=== PATIENT | female | born 1935 | race Caucasian/White ===

== ENCOUNTER 2017-06-10 00:51 | Day surgery (SDC) | payer MEDICARE, OTHER ==
[~2017-06-10 00:51] MED LIST: ALBU90OI INH; ATOR10 PO; Adult Low Dose81 MG PO; CITA20 PO; Calcium + Vita1 EACH PO; Celebrex200 MG PO; ENOX40I SC; Estradiol0.5 MG PO; FLONASE ALLERG9.9 ML NS; FLUSAL2505 INH; FOLI1 PO; GABA300 PO; GABA600 PO; HYDR-86 PO; HYDRO EYE PO; Hair, Skin & N1 EACH PO; Hydrocodone-Ap1 EA26 PO; INFLECTRA100 MG IV; JOINT HEALTH T1 EACH PO; METO100ER PO; METTREX2.5 PO; NITR.4SL SL; NYSTRITC TOP; OLME20-12. PO; OLME5TAB; Omeprazole20 M1; Omeprazole20 M1 PO; PREG150 PO; PROM25 PO; RANI150 PO; Remicade100 MG IV; Stool Softener100 MG PO; XARELTO20 MG PO; Zofran Odt4 MG SL
[2017-06-10 15:52] LABS: BASOPHILS ABSOLUTE AUTO 0.01 K/mm3 (0.00-0.23); BASOPHILS PERCENT AUTO 0 % (0-2); EOSINOPHILS ABSOLUTE AUTO 0.24 K/mm3 (0.00-0.68); EOSINOPHILS PERCENT AUTO 4 % (0-6); Hematocrit 41.5 % (33.0-51.0); Hemoglobin 13.3 g/dL (11.5-16.0); IMMATURE GRAN ABSOLUTE AUTO 0.01 K/mm3 (0.00-0.10); IMMATURE GRAN PERCENT AUTO 0 % (0-1); LYMPHOCYTES ABSOLUTE AUTO 2.19 K/mm3 (0.84-5.20); LYMPHOCYTES PERCENT AUTO 37 % (21-46); MONOCYTES ABSOLUTE AUTO 0.55 K/mm3 (0.16-1.47); MONOCYTES PERCENT AUTO 9 % (4-13); Mean Corpuscular HGB 31.3 pg (26.0-34.0); Mean Corpuscular Volume 98 fL (80-100); Mean Platelet Volume 10.1 fL (9.1-12.4); NEUTROPHILS ABSOLUTE AUTO 2.89 K/mm3 (1.96-9.15); NEUTROPHILS PERCENT AUTO 49 % (41-73); Platelet Count 383 K/mm3 (150-400); RDW Coefficient Variation 16.5 % (11.7-14.2); Red Blood Cell Count 4.25 M/mm3 (3.80-5.20); White Blood Cell Count 5.89 K/mm3 (4.00-11.30)
[2017-06-10 17:01] LABS: BASOPHILS ABSOLUTE AUTO 0.01 K/mm3 (0.00-0.23); BASOPHILS PERCENT AUTO 0 % (0-2); EOSINOPHILS ABSOLUTE AUTO 0.25 K/mm3 (0.00-0.68); EOSINOPHILS PERCENT AUTO 3 % (0-6); Hematocrit 38.3 % (33.0-51.0); Hemoglobin 12.5 g/dL (11.5-16.0); IMMATURE GRAN ABSOLUTE AUTO 0.01 K/mm3 (0.00-0.10); IMMATURE GRAN PERCENT AUTO 0 % (0-1); LYMPHOCYTES ABSOLUTE AUTO 3.06 K/mm3 (0.84-5.20); LYMPHOCYTES PERCENT AUTO 42 % (21-46); MONOCYTES ABSOLUTE AUTO 0.79 K/mm3 (0.16-1.47); MONOCYTES PERCENT AUTO 11 % (4-13); Mean Corpuscular HGB 31.5 pg (26.0-34.0); Mean Corpuscular HGB Conc 32.6 g/dL (31.5-36.5); Mean Corpuscular Volume 97 fL (80-100); Mean Platelet Volume 9.4 fL (9.1-12.4); NEUTROPHILS ABSOLUTE AUTO 3.26 K/mm3 (1.96-9.15); NEUTROPHILS PERCENT AUTO 44 % (41-73); Platelet Count 334 K/mm3 (150-400); RDW Standard Deviation 56.4 fL (35.1-46.3); Red Blood Cell Count 3.97 M/mm3 (3.80-5.20); White Blood Cell Count 7.38 K/mm3 (4.00-11.30)
== END 2017-06-10 16:45 | disposition home or self-care (01) ==
LOC: ATC 00:51
PROVIDERS: Internal Medicine Rheumatology
DX: M06.00 Rheumatoid arthritis without rheumatoid factor, unspecified site (principal); M45.9 Ankylosing spondylitis of unspecified sites in spine; M17.9 Osteoarthritis of knee, unspecified; E78.5 Hyperlipidemia, unspecified; Z79.899 Other long term (current) drug therapy; Z79.01 Long term (current) use of anticoagulants; Z86.73 Personal history of transient ischemic attack (TIA), and cerebral infarction without residual deficits; Z87.891 Personal history of nicotine dependence
CPT/HCPCS: 84450; 85025; 85651; 96413; 96415; J7050; Q5102-ZB

== ENCOUNTER 2017-07-26 12:03 | Day surgery (SDC) | payer MEDICARE, OTHER ==
[~2017-07-26] VITALS: Ht 157.5 cm; Wt 81.0 kg
== END 2017-07-26 22:44 | disposition home or self-care (01) ==
LOC: MHTC 12:03
PROC: 0JH632Z Insertion of Monitoring Device into Chest Subcutaneous Tissue and Fascia, Percutaneous Approach (ICD-10-PCS; principal; 2017-07-26)
DX: I48.91 Unspecified atrial fibrillation (principal); J45.909 Unspecified asthma, uncomplicated; M45.9 Ankylosing spondylitis of unspecified sites in spine; M19.90 Unspecified osteoarthritis, unspecified site; M06.9 Rheumatoid arthritis, unspecified; K21.9 Gastro-esophageal reflux disease without esophagitis; Z86.73 Personal history of transient ischemic attack (TIA), and cerebral infarction without residual deficits; Z79.899 Other long term (current) drug therapy; Z79.01 Long term (current) use of anticoagulants; Z87.891 Personal history of nicotine dependence
CPT/HCPCS: 33282; C1764

== ENCOUNTER 2017-07-29 01:05 | Day surgery (SDC) | payer MEDICARE, OTHER ==
[2017-07-29] MEDS ORDERED: DULO30 (13:51)
[2017-07-29] MEDS ORDERED: Slow Release I160 MG PO (13:52)
== END 2017-07-29 16:35 | disposition home or self-care (01) ==
LOC: ATC 01:05
DX: M06.00 Rheumatoid arthritis without rheumatoid factor, unspecified site (principal); M45.9 Ankylosing spondylitis of unspecified sites in spine; M17.9 Osteoarthritis of knee, unspecified
CPT/HCPCS: 96413; 96415; J7050; Q5102-ZB

== ENCOUNTER 2017-08-10 17:36 | Emergency (ER) | payer MEDICARE, OTHER ==
[~2017-08-10] VITALS: Ht 157.5 cm; Wt 81.7 kg
[~2017-08-10 17:36] MED LIST changes: +DULO30; +Slow Release I160 MG PO
[2017-08-10 19:57] LABS: Source, Urine Clean Catch
[2017-08-10 19:58] LABS: BASOPHILS ABSOLUTE AUTO 0.02 K/mm3 (0.00-0.23); BASOPHILS PERCENT AUTO 0 % (0-2); EOSINOPHILS ABSOLUTE AUTO 0.04 K/mm3 (0.00-0.68); EOSINOPHILS PERCENT AUTO 1 % (0-6); Hematocrit 43.7 % (33.0-51.0); Hemoglobin 14.3 g/dL (11.5-16.0); IMMATURE GRAN ABSOLUTE AUTO 0.03 K/mm3 (0.00-0.10); IMMATURE GRAN PERCENT AUTO 0 % (0-1); LYMPHOCYTES ABSOLUTE AUTO 2.63 K/mm3 (0.84-5.20); LYMPHOCYTES PERCENT AUTO 36 % (21-46); MONOCYTES ABSOLUTE AUTO 0.73 K/mm3 (0.16-1.47); MONOCYTES PERCENT AUTO 10 % (4-13); Mean Corpuscular HGB 32.1 pg (26.0-34.0); Mean Corpuscular HGB Conc 32.7 g/dL (31.5-36.5); Mean Corpuscular Volume 98 fL (80-100); Mean Platelet Volume 9.4 fL (9.1-12.4); NEUTROPHILS ABSOLUTE AUTO 3.92 K/mm3 (1.96-9.15); NEUTROPHILS PERCENT AUTO 53 % (41-73); Platelet Count 370 K/mm3 (150-400); RDW Coefficient Variation 14.6 % (11.7-14.2); RDW Standard Deviation 51.5 fL (35.1-46.3); Red Blood Cell Count 4.45 M/mm3 (3.80-5.20); White Blood Cell Count 7.37 K/mm3 (4.00-11.30)
[2017-08-10 20:04] LABS: Appearance, Urine Clear (Clear); Bilirubin, Urine Neg (Neg); Blood, Urine Neg (Neg); Color, Urine Yellow (P-Yellow); Glucose Qualitative, Urine Neg (Neg); Ketones, Urine 1+ (Neg); Leukocyte Esterase, Urine Neg (Neg); Nitrite, Urine Neg (Neg); Protein, Urine Neg (Neg); Urobilinogen, Urine NORM (Normal)
[2017-08-10 20:13] LABS: Troponin I <0.015 ng/mL (0.000-0.040)
[2017-08-10 20:18] LABS: Alanine Aminotransfer (ALT/SGP 16 U/L (12-78); Albumin, Blood 3.3 g/dL (3.4-5.0); Albumin/Globulin Ratio 0.8 (0.8-1.8); Alk Phos 66 U/L (50-136); Anion Gap 8 mmol/L (6-16); Aspartate Aminotrans (AST/SGOT 19 U/L (12-37); Bilirubin, Total 0.5 mg/dL (0.1-1.0); Blood Urea Nitrogen 15 mg/dL (8-24); Bun/Creatinine Ratio 24.6 (12.0-20.0); CO2, Blood 26 mmol/L (21-32); Calcium, Blood 9.3 mg/dL (8.5-10.1); Chloride, Blood 103 mmol/L (98-108); Creatinine, Blood 0.61 mg/dL (0.40-1.00); Globulin, Blood 4.3 g/dL (2.2-4.0); Glomerular Filtration Rate >60 (60-); Glucose, Blood 165 mg/dL (70-99); Potassium, Blood 3.5 mmol/L (3.5-5.5); Sodium, Blood 137 mmol/L (136-145); Total Protein, Blood 7.6 g/dL (6.4-8.2)
== END 2017-08-10 20:47 | disposition home or self-care (01) ==
LOC: ER 17:36
PROVIDERS: Physician Assistant
DX: R11.0 Nausea (principal); Z79.899 Other long term (current) drug therapy; J45.909 Unspecified asthma, uncomplicated; Z86.73 Personal history of transient ischemic attack (TIA), and cerebral infarction without residual deficits; Z87.891 Personal history of nicotine dependence
CPT/HCPCS: 36415; 80053; 81003; 83690; 84484; 85025; 93005; 93010; 99283; P9612

== ENCOUNTER 2017-12-23 00:26 | Day surgery (SDC) | payer MEDICARE, OTHER ==
[2017-12-23 14:31] LABS: BASOPHILS ABSOLUTE AUTO 0.03 K/mm3 (0.00-0.23); BASOPHILS PERCENT AUTO 1 % (0-2); EOSINOPHILS ABSOLUTE AUTO 0.29 K/mm3 (0.00-0.68); EOSINOPHILS PERCENT AUTO 4 % (0-6); Hematocrit 39.3 % (33.0-51.0); IMMATURE GRAN ABSOLUTE AUTO 0.02 K/mm3 (0.00-0.10); IMMATURE GRAN PERCENT AUTO 0 % (0-1); LYMPHOCYTES ABSOLUTE AUTO 2.68 K/mm3 (0.84-5.20); LYMPHOCYTES PERCENT AUTO 41 % (21-46); MONOCYTES ABSOLUTE AUTO 0.64 K/mm3 (0.16-1.47); MONOCYTES PERCENT AUTO 10 % (4-13); Mean Corpuscular HGB 33.1 pg (26.0-34.0); Mean Corpuscular HGB Conc 33.1 g/dL (31.5-36.5); Mean Corpuscular Volume 100 fL (80-100); Mean Platelet Volume 8.8 fL (9.1-12.4); NEUTROPHILS ABSOLUTE AUTO 2.93 K/mm3 (1.96-9.15); NEUTROPHILS PERCENT AUTO 44 % (41-73); Platelet Count 387 K/mm3 (150-400); RDW Coefficient Variation 13.9 % (11.7-14.2); RDW Standard Deviation 50.6 fL (35.1-46.3); Red Blood Cell Count 3.93 M/mm3 (3.80-5.20); White Blood Cell Count 6.59 K/mm3 (4.00-11.30)
[2017-12-23 15:22] LABS: BASOPHILS ABSOLUTE AUTO 0.02 K/mm3 (0.00-0.23); BASOPHILS PERCENT AUTO 0 % (0-2); EOSINOPHILS ABSOLUTE AUTO 0.28 K/mm3 (0.00-0.68); EOSINOPHILS PERCENT AUTO 5 % (0-6); Hematocrit 39.3 % (33.0-51.0); Hemoglobin 12.8 g/dL (11.5-16.0); IMMATURE GRAN ABSOLUTE AUTO 0.01 K/mm3 (0.00-0.10); IMMATURE GRAN PERCENT AUTO 0 % (0-1); LYMPHOCYTES ABSOLUTE AUTO 2.56 K/mm3 (0.84-5.20); LYMPHOCYTES PERCENT AUTO 42 % (21-46); MONOCYTES ABSOLUTE AUTO 0.59 K/mm3 (0.16-1.47); MONOCYTES PERCENT AUTO 10 % (4-13); Mean Corpuscular HGB 32.2 pg (26.0-34.0); Mean Corpuscular HGB Conc 32.6 g/dL (31.5-36.5); Mean Corpuscular Volume 99 fL (80-100); Mean Platelet Volume 8.9 fL (9.1-12.4); NEUTROPHILS ABSOLUTE AUTO 2.66 K/mm3 (1.96-9.15); NEUTROPHILS PERCENT AUTO 44 % (41-73); Platelet Count 374 K/mm3 (150-400); RDW Coefficient Variation 13.9 % (11.7-14.2); RDW Standard Deviation 50.4 fL (35.1-46.3); Red Blood Cell Count 3.97 M/mm3 (3.80-5.20); White Blood Cell Count 6.12 K/mm3 (4.00-11.30)
== END 2017-12-23 17:17 | disposition home or self-care (01) ==
LOC: ATC 00:26
PROVIDERS: Internal Medicine Rheumatology
DX: M06.00 Rheumatoid arthritis without rheumatoid factor, unspecified site (principal); M45.9 Ankylosing spondylitis of unspecified sites in spine; E66.9 Obesity, unspecified; I10 Essential (primary) hypertension; E78.00 Pure hypercholesterolemia, unspecified; Z87.891 Personal history of nicotine dependence
CPT/HCPCS: 84450; 85025; 85651; J7050; Q5103

== ENCOUNTER 2018-02-17 00:13 | Day surgery (SDC) | payer MEDICARE ==
[2018-02-17 14:50] LABS: BASOPHILS ABSOLUTE AUTO 0.03 K/mm3 (0.00-0.23); BASOPHILS PERCENT AUTO 0 % (0-2); EOSINOPHILS ABSOLUTE AUTO 0.28 K/mm3 (0.00-0.68); EOSINOPHILS PERCENT AUTO 4 % (0-6); Hematocrit 42.7 % (33.0-51.0); IMMATURE GRAN ABSOLUTE AUTO 0.02 K/mm3 (0.00-0.10); IMMATURE GRAN PERCENT AUTO 0 % (0-1); LYMPHOCYTES ABSOLUTE AUTO 2.31 K/mm3 (0.84-5.20); LYMPHOCYTES PERCENT AUTO 30 % (21-46); MONOCYTES ABSOLUTE AUTO 0.77 K/mm3 (0.16-1.47); MONOCYTES PERCENT AUTO 10 % (4-13); Mean Corpuscular HGB 32.3 pg (26.0-34.0); Mean Corpuscular HGB Conc 32.8 g/dL (31.5-36.5); Mean Corpuscular Volume 98 fL (80-100); Mean Platelet Volume 9.1 fL (9.1-12.4); NEUTROPHILS ABSOLUTE AUTO 4.42 K/mm3 (1.96-9.15); NEUTROPHILS PERCENT AUTO 56 % (41-73); Platelet Count 444 K/mm3 (150-400); RDW Coefficient Variation 13.2 % (11.7-14.2); RDW Standard Deviation 47.8 fL (35.1-46.3); Red Blood Cell Count 4.34 M/mm3 (3.80-5.20); White Blood Cell Count 7.83 K/mm3 (4.00-11.30)
== END 2018-02-17 16:23 | disposition home or self-care (01) ==
LOC: ATC 00:13
PROVIDERS: Internal Medicine Rheumatology
DX: M06.00 Rheumatoid arthritis without rheumatoid factor, unspecified site (principal); M45.9 Ankylosing spondylitis of unspecified sites in spine; Z79.899 Other long term (current) drug therapy
CPT/HCPCS: 84450; 85025; 85651; 96413; 96415; J7050; Q5103

== ENCOUNTER 2018-06-09 01:27 | Day surgery (SDC) | payer MEDICARE ==
[2018-06-09 14:13] LABS: BASOPHILS ABSOLUTE AUTO 0.04 K/mm3 (0.00-0.23); BASOPHILS PERCENT AUTO 1 % (0-2); EOSINOPHILS ABSOLUTE AUTO 0.44 K/mm3 (0.00-0.68); EOSINOPHILS PERCENT AUTO 5 % (0-6); Hematocrit 42.2 % (33.0-51.0); Hemoglobin 13.7 g/dL (11.5-16.0); IMMATURE GRAN ABSOLUTE AUTO 0.01 K/mm3 (0.00-0.10); IMMATURE GRAN PERCENT AUTO 0 % (0-1); LYMPHOCYTES ABSOLUTE AUTO 3.62 K/mm3 (0.84-5.20); LYMPHOCYTES PERCENT AUTO 42 % (21-46); MONOCYTES ABSOLUTE AUTO 1.13 K/mm3 (0.16-1.47); MONOCYTES PERCENT AUTO 13 % (4-13); Mean Corpuscular HGB 32.5 pg (26.0-34.0); Mean Corpuscular HGB Conc 32.5 g/dL (31.5-36.5); Mean Corpuscular Volume 100 fL (80-100); Mean Platelet Volume 9.4 fL (9.1-12.4); NEUTROPHILS ABSOLUTE AUTO 3.45 K/mm3 (1.96-9.15); NEUTROPHILS PERCENT AUTO 40 % (41-73); Platelet Count 364 K/mm3 (150-400); RDW Coefficient Variation 14.3 % (11.7-14.2); RDW Standard Deviation 51.5 fL (35.1-46.3); Red Blood Cell Count 4.21 M/mm3 (3.80-5.20); White Blood Cell Count 8.69 K/mm3 (4.00-11.30)
== END 2018-06-09 16:10 | disposition home or self-care (01) ==
LOC: ATC 01:27
PROVIDERS: Internal Medicine Rheumatology
DX: M06.00 Rheumatoid arthritis without rheumatoid factor, unspecified site (principal)
CPT/HCPCS: 84460; 85025; 85651; 96413; 96415; J7050; Q5103

== ENCOUNTER 2018-08-11 00:53 | Day surgery (SDC) | payer MEDICARE ==
[2018-08-11 14:21] LABS: Hematocrit 41.8 % (33.0-51.0); Hemoglobin 13.7 g/dL (11.5-16.0); Mean Corpuscular HGB 33.2 pg (26.0-34.0); Mean Corpuscular HGB Conc 32.8 g/dL (31.5-36.5); Mean Corpuscular Volume 101 fL (80-100); Mean Platelet Volume 9.4 fL (9.1-12.4); Platelet Count 395 K/mm3 (150-400); RDW Coefficient Variation 13.6 % (11.7-14.2); RDW Standard Deviation 51.2 fL (35.1-46.3); Red Blood Cell Count 4.13 M/mm3 (3.80-5.20); White Blood Cell Count 7.99 K/mm3 (4.00-11.30)
== END 2018-08-11 16:25 | disposition home or self-care (01) ==
LOC: ATC 00:53
PROVIDERS: Internal Medicine Rheumatology
DX: M06.00 Rheumatoid arthritis without rheumatoid factor, unspecified site (principal); M45.9 Ankylosing spondylitis of unspecified sites in spine; Z79.899 Other long term (current) drug therapy; E66.9 Obesity, unspecified; I10 Essential (primary) hypertension; Z87.891 Personal history of nicotine dependence
CPT/HCPCS: 84450; 85027; 85651; 96413; 96415; J7050; Q5103

== ENCOUNTER 2018-12-01 00:18 | Day surgery (SDC) | payer MEDICARE, OTHER ==
[2018-12-01 14:08] LABS: BASOPHILS ABSOLUTE AUTO 0.02 K/mm3 (0.00-0.23); BASOPHILS PERCENT AUTO 0 % (0-2); EOSINOPHILS ABSOLUTE AUTO 0.39 K/mm3 (0.00-0.68); EOSINOPHILS PERCENT AUTO 6 % (0-6); Hematocrit 38.6 % (33.0-51.0); Hemoglobin 12.6 g/dL (11.5-16.0); IMMATURE GRAN ABSOLUTE AUTO 0.01 K/mm3 (0.00-0.10); IMMATURE GRAN PERCENT AUTO 0 % (0-1); LYMPHOCYTES ABSOLUTE AUTO 2.74 K/mm3 (0.84-5.20); LYMPHOCYTES PERCENT AUTO 41 % (21-46); MONOCYTES ABSOLUTE AUTO 0.81 K/mm3 (0.16-1.47); MONOCYTES PERCENT AUTO 12 % (4-13); Mean Corpuscular HGB 32.7 pg (26.0-34.0); Mean Corpuscular HGB Conc 32.6 g/dL (31.5-36.5); Mean Corpuscular Volume 100 fL (80-100); Mean Platelet Volume 9.2 fL (9.1-12.4); NEUTROPHILS PERCENT AUTO 41 % (41-73); Platelet Count 440 K/mm3 (150-400); RDW Coefficient Variation 13.7 % (11.7-14.2); RDW Standard Deviation 49.5 fL (35.1-46.3); Red Blood Cell Count 3.85 M/mm3 (3.80-5.20); White Blood Cell Count 6.77 K/mm3 (4.00-11.30)
== END 2018-12-01 23:29 | disposition home or self-care (01) ==
LOC: ATC 00:18
PROVIDERS: Internal Medicine Rheumatology
DX: M06.00 Rheumatoid arthritis without rheumatoid factor, unspecified site (principal); M45.9 Ankylosing spondylitis of unspecified sites in spine; E66.9 Obesity, unspecified; E78.00 Pure hypercholesterolemia, unspecified; Z86.73 Personal history of transient ischemic attack (TIA), and cerebral infarction without residual deficits; Z87.891 Personal history of nicotine dependence
CPT/HCPCS: 36415; 84460; 85025; 85651; 96413; 96415; Q5103

== ENCOUNTER 2019-01-26 02:00 | Day surgery (SDC) | payer MEDICARE, OTHER ==
[2019-01-26 14:37] LABS: BASOPHILS ABSOLUTE AUTO 0.02 K/mm3 (0.00-0.23); BASOPHILS PERCENT AUTO 0 % (0-2); EOSINOPHILS ABSOLUTE AUTO 0.37 K/mm3 (0.00-0.68); EOSINOPHILS PERCENT AUTO 6 % (0-6); Hematocrit 41.5 % (33.0-51.0); Hemoglobin 13.6 g/dL (11.5-16.0); IMMATURE GRAN ABSOLUTE AUTO 0.01 K/mm3 (0.00-0.10); IMMATURE GRAN PERCENT AUTO 0 % (0-1); LYMPHOCYTES ABSOLUTE AUTO 2.62 K/mm3 (0.84-5.20); LYMPHOCYTES PERCENT AUTO 40 % (21-46); MONOCYTES ABSOLUTE AUTO 0.66 K/mm3 (0.16-1.47); MONOCYTES PERCENT AUTO 10 % (4-13); Mean Corpuscular HGB 32.7 pg (26.0-34.0); Mean Corpuscular HGB Conc 32.8 g/dL (31.5-36.5); Mean Corpuscular Volume 100 fL (80-100); Mean Platelet Volume 9.1 fL (9.1-12.4); NEUTROPHILS ABSOLUTE AUTO 2.83 K/mm3 (1.96-9.15); NEUTROPHILS PERCENT AUTO 44 % (41-73); Platelet Count 381 K/mm3 (150-400); RDW Coefficient Variation 13.8 % (11.7-14.2); RDW Standard Deviation 50.4 fL (35.1-46.3); Red Blood Cell Count 4.16 M/mm3 (3.80-5.20); White Blood Cell Count 6.51 K/mm3 (4.00-11.30)
== END 2019-01-26 16:30 | disposition home or self-care (01) ==
LOC: ATC 02:00
PROVIDERS: Internal Medicine Rheumatology
DX: M06.00 Rheumatoid arthritis without rheumatoid factor, unspecified site (principal); I10 Essential (primary) hypertension; I48.91 Unspecified atrial fibrillation; E78.5 Hyperlipidemia, unspecified; E66.01 Morbid (severe) obesity due to excess calories; Z79.899 Other long term (current) drug therapy; Z87.891 Personal history of nicotine dependence; Z68.32 Body mass index [BMI] 32.0-32.9, adult
CPT/HCPCS: 84460; 85025; 85651; 96413; 96415; J7050; Q5103

== ENCOUNTER 2019-03-23 01:10 | Day surgery (SDC) | payer MEDICARE, OTHER ==
[2019-03-23 14:30] LABS: BASOPHILS ABSOLUTE AUTO 0.03 K/mm3 (0.00-0.23); BASOPHILS PERCENT AUTO 0 % (0-2); EOSINOPHILS ABSOLUTE AUTO 0.44 K/mm3 (0.00-0.68); EOSINOPHILS PERCENT AUTO 6 % (0-6); Hematocrit 40.2 % (33.0-51.0); Hemoglobin 13.1 g/dL (11.5-16.0); IMMATURE GRAN ABSOLUTE AUTO 0.02 K/mm3 (0.00-0.10); IMMATURE GRAN PERCENT AUTO 0 % (0-1); LYMPHOCYTES ABSOLUTE AUTO 1.81 K/mm3 (0.84-5.20); LYMPHOCYTES PERCENT AUTO 26 % (21-46); MONOCYTES PERCENT AUTO 12 % (4-13); Mean Corpuscular HGB 33.1 pg (26.0-34.0); Mean Corpuscular HGB Conc 32.6 g/dL (31.5-36.5); Mean Corpuscular Volume 102 fL (80-100); NEUTROPHILS ABSOLUTE AUTO 3.75 K/mm3 (1.96-9.15); NEUTROPHILS PERCENT AUTO 55 % (41-73); Platelet Count 378 K/mm3 (150-400); RDW Coefficient Variation 14.3 % (11.7-14.2); RDW Standard Deviation 52.7 fL (35.1-46.3); Red Blood Cell Count 3.96 M/mm3 (3.80-5.20); White Blood Cell Count 6.85 K/mm3 (4.00-11.30)
== END 2019-03-23 16:40 | disposition home or self-care (01) ==
LOC: ATC 01:10
PROVIDERS: Internal Medicine Rheumatology
DX: M06.00 Rheumatoid arthritis without rheumatoid factor, unspecified site (principal); I10 Essential (primary) hypertension; E66.01 Morbid (severe) obesity due to excess calories; E78.2 Mixed hyperlipidemia; Z79.899 Other long term (current) drug therapy; Z68.32 Body mass index [BMI] 32.0-32.9, adult; Z79.01 Long term (current) use of anticoagulants; Z87.891 Personal history of nicotine dependence
CPT/HCPCS: 84450; 85025; 85651; 96413; 96415; J7050; Q5103

== ENCOUNTER 2019-05-18 00:20 | Day surgery (SDC) | payer MEDICARE, OTHER ==
[~2019-05-18 00:20] MED LIST changes: -DULO30; +DULO30 PO
[2019-05-18 14:22] LABS: BASOPHILS ABSOLUTE AUTO 0.03 K/mm3 (0.00-0.23); BASOPHILS PERCENT AUTO 1 % (0-2); EOSINOPHILS PERCENT AUTO 5 % (0-6); Hematocrit 38.7 % (33.0-51.0); Hemoglobin 12.4 g/dL (11.5-16.0); IMMATURE GRAN ABSOLUTE AUTO 0.02 K/mm3 (0.00-0.10); IMMATURE GRAN PERCENT AUTO 0 % (0-1); LYMPHOCYTES ABSOLUTE AUTO 2.11 K/mm3 (0.84-5.20); LYMPHOCYTES PERCENT AUTO 34 % (21-46); MONOCYTES ABSOLUTE AUTO 0.97 K/mm3 (0.16-1.47); MONOCYTES PERCENT AUTO 15 % (4-13); Mean Corpuscular HGB 33.3 pg (26.0-34.0); Mean Corpuscular Volume 104 fL (80-100); NEUTROPHILS ABSOLUTE AUTO 2.86 K/mm3 (1.96-9.15); NEUTROPHILS PERCENT AUTO 46 % (41-73); Platelet Count 393 K/mm3 (150-400); RDW Coefficient Variation 14.9 % (11.7-14.2); RDW Standard Deviation 57.5 fL (35.1-46.3); Red Blood Cell Count 3.72 M/mm3 (3.80-5.20); White Blood Cell Count 6.29 K/mm3 (4.00-11.30)
== END 2019-05-18 16:31 | disposition home or self-care (01) ==
LOC: ATC 00:20
PROVIDERS: Internal Medicine Rheumatology
DX: M06.00 Rheumatoid arthritis without rheumatoid factor, unspecified site (principal); M45.0 Ankylosing spondylitis of multiple sites in spine; I10 Essential (primary) hypertension; E78.5 Hyperlipidemia, unspecified; E66.01 Morbid (severe) obesity due to excess calories; R41.3 Other amnesia; Z68.32 Body mass index [BMI] 32.0-32.9, adult; Z79.899 Other long term (current) drug therapy; Z79.01 Long term (current) use of anticoagulants
CPT/HCPCS: 84450; 85025; 85651; 96413; 96415; J7050; Q5103

== ENCOUNTER → 2019-06-26 | Outpatient (CLI) | payer MEDICARE, OTHER ==
[~2019-06-26] MED LIST changes: +Amlodipine Bes2.5 MG PO; +CEFU250T47 PO
== END ==
LOC: LAB SHORT 07:09 → PLD 07:09
DX: D48.5 Neoplasm of uncertain behavior of skin (principal)
CPT/HCPCS: 88305

== ENCOUNTER 2019-07-04 10:34 | Inpatient (IN) | payer MEDICARE, OTHER ==
[~2019-07-04] VITALS: Ht 170.2 cm; Wt 84.5 kg
[~2019-07-04 10:34] MED LIST changes: -Amlodipine Bes2.5 MG PO; -CEFU250T47 PO
[2019-07-04 11:05] LABS: BASOPHILS ABSOLUTE AUTO 0.02 K/mm3 (0.00-0.23); BASOPHILS PERCENT AUTO 0 % (0-2); EOSINOPHILS PERCENT AUTO 0 % (0-6); Hematocrit 41.6 % (33.0-51.0); Hemoglobin 12.6 g/dL (11.5-16.0); IMMATURE GRAN ABSOLUTE AUTO 0.04 K/mm3 (0.00-0.10); IMMATURE GRAN PERCENT AUTO 0 % (0-1); LYMPHOCYTES ABSOLUTE AUTO 2.15 K/mm3 (0.84-5.20); LYMPHOCYTES PERCENT AUTO 21 % (21-46); MONOCYTES ABSOLUTE AUTO 0.39 K/mm3 (0.16-1.47); MONOCYTES PERCENT AUTO 4 % (4-13); Mean Corpuscular HGB 32.6 pg (26.0-34.0); Mean Corpuscular HGB Conc 30.3 g/dL (31.5-36.5); Mean Corpuscular Volume 108 fL (80-100); Mean Platelet Volume 9.1 fL (9.1-12.4); NEUTROPHILS ABSOLUTE AUTO 7.87 K/mm3 (1.96-9.15); NEUTROPHILS PERCENT AUTO 75 % (41-73); Platelet Count 387 K/mm3 (150-400); RDW Coefficient Variation 14.9 % (11.7-14.2); RDW Standard Deviation 57.9 fL (35.1-46.3); Red Blood Cell Count 3.86 M/mm3 (3.80-5.20); White Blood Cell Count 10.47 K/mm3 (4.00-11.30)
[2019-07-04 11:15] LABS: PO2 Arterial 71.8 mmHg (80-100)
[2019-07-04 11:16] LABS: PCO2 Arterial 79.6 mmHg (35-45); pH Blood Arterial 7.23 (7.35-7.45)
[2019-07-04 11:21] LABS: International Normalized Ratio 1.07; Prothrombin Time Results 11.4 Sec (9.7-11.5)
[2019-07-04 11:27] LABS: Albumin, Blood 3.1 g/dL (3.4-5.0); Albumin/Globulin Ratio 0.6 (0.8-1.8); Bilirubin, Total 0.2 mg/dL (0.1-1.0); Bun/Creatinine Ratio 20.1 (12.0-20.0); Calcium, Blood 8.9 mg/dL (8.5-10.1); Creatine Kinase MB 4.8 ng/mL (0.0-3.6); Creatine Kinase MB Index 3.6 (0.0-4.0); Creatinine, Blood 1.34 mg/dL (0.40-1.00); Globulin, Blood 5.1 g/dL (2.2-4.0); Potassium, Blood 4.9 mmol/L (3.5-5.5); Total Protein, Blood 8.2 g/dL (6.4-8.2); Troponin I 0.334 ng/mL (0.000-0.040)
[2019-07-04 13:59] LABS: U Amphetamine Screen Not Detected; U Barbituate Screen Not Detected; U Benzodiazapine Screen Not Detected; U Buprenorphine Screen Not Detected; U Cannabinoids Screen Not Detected; U Cocaine Screen Not Detected; U Methadone Screen Not Detected; U Methamphetamine Screen Not Detected; U Opiates Screen Not Detected; U Oxycodone Screen Not Detected; U Phencyclidine Screen Not Detected; U Propoxyphene Screen Not Detected
--- NOTE | 2019-07-04 20:05 | NUR ---
ADMIT NOTE/SHIFT SUMMARY RECEIVED REPORT FROM YAIR BOURNE RN IN ED. PT TO ROOM VIA GURNEY AT 1635; 1 PERSON ASSIST TO BED. PT CAME TO ROOM ON 5L O2 VIA NC FOR A BREAK OFF BIPAP. PT AND FAMILY ORIENTED TO ROOM AND UNIT. EDUCATED ON BED ALARM AND CALL LIGHT. PT DAUGHTER STATES THAT SHE FOUND THE PT DOWN; BLUE/PURPLE AND UNRESPONSIVE AND CALLED EMS. PT ALERT AND ORIENTED TO PLACE AND PERSON; UNABLE TO RECALL DATE/TIME, PRESIDENT AND EVENT. PER DAUGHTER PT HAS MILD DEMENTIA AT BASELINE. PT REPORTS "A LITTLE" SOB WITH ACTIVITY, SPO2 >90% ON 5L O2 VIA NC. AT APPROX 1725 PT PLACED BACK ON BIPAP SHE WAS FALLING ASLEEP. SPO2 >90% ON BIPAP. LS DIM T/O WITH FINE CRACKLES TO RIGHT MID AND LOWER LOBES. PT RECEIVING IV ANTIBIOTICS FOR PNA. PT DENIES PAIN, CHEST PAIN/PRESSURE, NAUSEA AND LIGHTHEADED/DIZZINESS. PT RECEIVING IV FLUIDS. ORDERS FOR NPO, SUCTION IN ROOM. MOUTH SWABS USED FOR ORAL CARE. VSS. NO OTHER ACUTE CHANGES NOTED DURING SHIFT. PER DAUGHTER AND CAREGIVER AT BEDSIDE, THE PT AND SPOUSE LIVE TOGETHER IN A HOUSE, THE DAUGHTER LIVES IN AN APARTMENT/BASEMENT OF THE HOUSE. PER DAUGHTER AND CAREGIVER WAKES UP AT AROUND 1700 AND GOES TO SLEEP 2100. REPORT GIVEN TO PETER VALDOVINOS.
--- NOTE | 2019-07-05 02:30 | NUR ---
Pt tolerating 5L NC with o2 at 100%, breathing even and unlabored. Pt with increased alertness, disoriented to place but redirectable and retaining information once redirected. Titrating to 3L NC now.
--- NOTE | 2019-07-05 03:11 | NUR ---
Pt tolerating 3L NC, sleeping at this time. Pt complained to this RN about R Shoulder pain. Per clinical history of pt found down at home, MD called and R Shoulder XR ordered by .
--- NOTE | 2019-07-05 03:22 | NUR ---
O2 titrated down to 2L NC.
--- NOTE | 2019-07-05 05:19 | NUR ---
SHIFT SUMMARY Pt moved from PCU 6 to PCU 9 this shift to ensure pt safety. At begining of shift, pt confused and lethargic, pulling on BIPAP and requiring BIPAP to maintain oxygen saturations >90%. At begining of shift, if BIPAP was off pt she would desat to 70% and require up to 5 minutes to recover. BIPAP removed from pt at approx 0100, pt tolerating 5LNC with o2>94%. Pt has since been titrated to 2L NC tolerating saturations >94%. Since NC placement, pt has been alert and oriented, forgetful at times. Pt with R Knee bruise and R shoulder pain - xray ordered per provider. No events on tele, breathing even and unlabored, no acute signs of distress. Pt family at bedside until 0400; family memeberPetra, updated on pt condition and all questions answered. Pt repositioned to comfort throughout night. Up with 2 to BSC. Will continue to monitor.
[2019-07-05 05:33] LABS: Albumin, Blood 2.8 g/dL (3.4-5.0); Anion Gap 2 mmol/L (6-16); Blood Urea Nitrogen 30 mg/dL (8-24); Bun/Creatinine Ratio 28.8 (12.0-20.0); CO2, Blood 32 mmol/L (21-32); Calcium, Blood 8.3 mg/dL (8.5-10.1); Chloride, Blood 104 mmol/L (98-108); Creatinine, Blood 1.04 mg/dL (0.40-1.00); Glomerular Filtration Rate 54 (60-); Glucose, Blood 108 mg/dL (70-99); Phosphorus, Blood 3.9 mg/dL (2.5-4.9); Potassium, Blood 4.1 mmol/L (3.5-5.5); Sodium, Blood 138 mmol/L (136-145)
--- NOTE | 2019-07-05 06:13 | NUR ---
PT TRANSPORT TO XRAY
--- NOTE | 2019-07-05 10:02 | NUR ---
PATIENT DESATURATED WITH PT AMBULATION PATIENT RETURNED TO ROOM AFTER AMBULATING 150 YARD IN THE [place] ON ROOM AIR. IT WAS NOTED THAT PATIENTS SATURATION WAS 78% ON ROOM AIR. PATIENT PLACED ON NC AND RECOVERED TO 94% SATURATION WHILE SITTING IN CHAIR - MODERATELY FAST. PATIENT REMAINS SITTING UP IN CHAIR ON TAB ALARM ON 2 LPM NC AND CONTINUOUS BIOX IN PLACE. CALL LIGHT W/I REACH.
[2019-07-05 10:56] LABS: BASOPHILS ABSOLUTE AUTO 0.02 K/mm3 (0.00-0.23); BASOPHILS PERCENT AUTO 0 % (0-2); EOSINOPHILS ABSOLUTE AUTO 0.06 K/mm3 (0.00-0.68); EOSINOPHILS PERCENT AUTO 1 % (0-6); Hematocrit 39.1 % (33.0-51.0); Hemoglobin 11.8 g/dL (11.5-16.0); IMMATURE GRAN ABSOLUTE AUTO 0.03 K/mm3 (0.00-0.10); IMMATURE GRAN PERCENT AUTO 0 % (0-1); LYMPHOCYTES ABSOLUTE AUTO 2.86 K/mm3 (0.84-5.20); LYMPHOCYTES PERCENT AUTO 29 % (21-46); MONOCYTES ABSOLUTE AUTO 1.46 K/mm3 (0.16-1.47); MONOCYTES PERCENT AUTO 15 % (4-13); Mean Corpuscular HGB 32.7 pg (26.0-34.0); Mean Corpuscular HGB Conc 30.2 g/dL (31.5-36.5); Mean Corpuscular Volume 108 fL (80-100); Mean Platelet Volume 9.6 fL (9.1-12.4); NEUTROPHILS PERCENT AUTO 55 % (41-73); Platelet Count 352 K/mm3 (150-400); RDW Coefficient Variation 15.1 % (11.7-14.2); RDW Standard Deviation 59.5 fL (35.1-46.3); Red Blood Cell Count 3.61 M/mm3 (3.80-5.20); White Blood Cell Count 9.83 K/mm3 (4.00-11.30)
--- NOTE | 2019-07-05 15:04 | NUR ---
UPDATED NURSE NOTE PATIENT REMAINS DEMENTIA AND FORGETFUL TO LOCATION AND SITUATION. PATIENT ORIENTED TO SELF. PATIENT SITTING UP IN CHAIR WITH TAB ALARM IN PLACE. PATIENT DENIES ANY PAIN OR DISCOMFORT. CONTINUOUS BIOX IN PLACE. PATIENT REMAINS IN NSR WITH NO CARDIAC EVENTS NOTED PER COMPUTER BOOKKEEPER. RESP E/U AT REST ON 1 LPM NC - PATIENT DOES DESATURATE WITH AMBULATION. PATIENT SBA WITH FWW FOR TRANSFER. CALL LIGHT W/I REACH.
--- NOTE | 2019-07-05 18:35 | NUR ---
NURSING PCU DAYSHIFT SUMMARY: No significant changes noted since care assumed at 1500. Pt remains forgetful though is very pleasant. [facility] w/no s/s of aspiration. Family at bedside t/o the afternoon, questions answered, update provided. Pt denies any current needs, no s/s of acute distress, bed/chair alarms in use.
--- NOTE | 2019-07-05 19:46 | NUR ---
Assumed care Pt sitting in chair at bedside visiting with family. VSS. No apparent sign of distress. Pt breathing even and unlabored on 1L nc at 98%. Pt is alert, oriented to person, place, time, event. Pt forgetful and with dementia at baseline. [facility] soft diet ordered by [facility] to evaluate again in AM. Pt conversing appropriately with staff and with family. Family at bedside making pt needs known. No acute concerns to note.
--- NOTE | 2019-07-06 00:10 | NUR ---
PT with second panic attack of the shift. HTN noted, see vitals documentation. HR elevated to 130's per tele. called and notifed of pt's anxiety and vitals. Zyprexa PO ordered. Will continue to assess vitals with medication administration. Pt's daughter, isael called and notifed of pt's anxiety. Daughter to come and stay with patient this night.
--- NOTE | 2019-07-06 01:31 | NUR ---
Provider called, hr sustaining 160-180 per tele. pt asx. alert. lopressor ordered 5mg iv once ordered and given. HR down to 130 briefly, afib, hr back to 150.
--- NOTE | 2019-07-06 01:36 | NUR ---
Provider called and updated on pt's hr and rhythm. EKG ordered, cardizem push and cardizem gtt ordered.
--- NOTE | 2019-07-06 03:09 | NUR ---
Pt recieved cardizem 10 mg IV push per orders and was started on a cardizem gtt per orders. Cardizem gtt at 10mg/hr with HR 110-120. Pt with SOB, NC increased to 2.5 L/min. Pt's daughter, Petra at bedside. Petra updated on pt condition, educated about afib. questions answered. Pt lying in bed at this time, eyes closed. Daughter at bedside.
[2019-07-06 04:04] LABS: BASOPHILS ABSOLUTE AUTO 0.04 K/mm3 (0.00-0.23); BASOPHILS PERCENT AUTO 0 % (0-2); EOSINOPHILS ABSOLUTE AUTO 0.28 K/mm3 (0.00-0.68); EOSINOPHILS PERCENT AUTO 3 % (0-6); Hematocrit 41.1 % (33.0-51.0); Hemoglobin 12.7 g/dL (11.5-16.0); IMMATURE GRAN ABSOLUTE AUTO 0.04 K/mm3 (0.00-0.10); IMMATURE GRAN PERCENT AUTO 0 % (0-1); LYMPHOCYTES ABSOLUTE AUTO 3.04 K/mm3 (0.84-5.20); LYMPHOCYTES PERCENT AUTO 29 % (21-46); MONOCYTES ABSOLUTE AUTO 1.54 K/mm3 (0.16-1.47); MONOCYTES PERCENT AUTO 15 % (4-13); Mean Corpuscular HGB 32.2 pg (26.0-34.0); Mean Corpuscular HGB Conc 30.9 g/dL (31.5-36.5); NEUTROPHILS ABSOLUTE AUTO 5.71 K/mm3 (1.96-9.15); NEUTROPHILS PERCENT AUTO 54 % (41-73); Platelet Count 375 K/mm3 (150-400); RDW Coefficient Variation 14.7 % (11.7-14.2); RDW Standard Deviation 56.3 fL (35.1-46.3); Red Blood Cell Count 3.94 M/mm3 (3.80-5.20); White Blood Cell Count 10.65 K/mm3 (4.00-11.30)
[2019-07-06 04:09] LABS: Mean Corpuscular Volume 104 fL (80-100)
[2019-07-06 04:28] LABS: Anion Gap 4 mmol/L (6-16); Blood Urea Nitrogen 18 mg/dL (8-24); Bun/Creatinine Ratio 25.1 (12.0-20.0); CO2, Blood 33 mmol/L (21-32); Calcium, Blood 8.9 mg/dL (8.5-10.1); Chloride, Blood 105 mmol/L (98-108); Creatinine, Blood 0.72 mg/dL (0.40-1.00); Glomerular Filtration Rate >60 (60-); Glucose, Blood 116 mg/dL (70-99); Phosphorus, Blood 2.1 mg/dL (2.5-4.9); Potassium, Blood 3.9 mmol/L (3.5-5.5); Sodium, Blood 142 mmol/L (136-145)
--- NOTE | 2019-07-06 06:13 | NUR ---
Shift Summary pt with events as documented previously this shift. Pt began shift in NSR in 90's; sudden event to A fib RVR. Lopressor 5 mg initially attempted to lower hr, unsuccessful. Cardizem 10mg IV push given per orders next with brief resolution of tachycardia, but pt ultimatly requiring cardizem gtt. Pt complains of anxiety throughout begining of shift (before daughter arrived at approx 2345). Pt tearful with this RN regarding anxiety in life ( has progressively worsening dementia, daughters health issue). Pt's daughter called and encouraged to spend night with pt. When pt's daughter arrived, pt's anxiety decreased and pt spent much of the second part of the shift laughing. Pt currently with HR 120's on 10 mg/hr of cardizem. VSS. Alert and oriented, underlying dementia so pt is forgetful and requires frequent redirection. Pt is compliant, calls appropriately, able to make needs known. Pt frequently up to BSC for voiding. Steady transfer with 1 assist. pt titrated from 1L NC to 3L NC during A fib event. Pt remains on 3L at this time. Pt not requiring BIPAP this shift. Will continue to monitor.
--- NOTE | 2019-07-06 08:30 | NUR ---
ASSUMED CARE ASSUMED CARE AT APPROXIMATELY 0730. PT ALERT AND ORIENTED. VS STABLE. HR 90-110'S AFIB. BP STABLE. O2 SATS REMAIN ABOVE 90% ON 3L NC. CARDIZEM GTT INFUSING AT 10ML/H UPON INITIAL ASSESSMENT, BUT HAS BEEN DISCONTINUED AT 0830 BECAUSE PT CONVERTED TO NSR. DR. RIVERA CALLED AND UPDATED. PT FORGETFUL AT TIMES AND BED ALARM IS ON. PT DENIES ANY PAIN. WILL CONTINUE TO MONITOR CLOSELY.
--- NOTE | 2019-07-06 17:22 | NUR ---
SHIFT SUMMARY PT ALERT AND ORIENTED TO SELF, SITUATION, AND FOLLOWING DIRECTIONS. PT CONFUSED AT TIMES AND NEEDS REORIENTED. VS STABLE. HR REMAINS NSR. PT ABLE TO AMBULATE TO BSC NEEDED TO VOID WITH 1 ASSIST. STATUS CHANGED TO MEDICAL THIS EVENING. WILL CONTINUE TO MONITOR AND REPORT TO ONCOMING RN. CALL LIGHT IN REACH. BED ALARM ON.
--- NOTE | 2019-07-06 19:35 | NUR ---
ASSUMED CARE PATIENT IS AWAKE AND ALERT LYING IN BED, PLEASANTLY CONVERSIVE, DENIES PAIN, DENIES DISCOMFORT. PATIENT'S DAUGHTER IS IN ROOM. VITALS CHECK SHOWS BLOOD PRESSURE OF 190/112, W/HR OF 104. PATIENT APPEARS SLIGHTLY FLUSHED, REPORTS MILD PRESSURE IN HEAD. PATIENT'S EMAR HAS NOTHING OTHER THAN SCHEDULED MEDICATION FOR BP, WILL OBTAIN ORDER TO ADDRESS ELEVATED BP, AND CONTINUE TO TREAT PATIENT PER EMAR AND PROTOCOL. CALL LIGHT IN REACH, DAUGHTER IN ROOM.
--- NOTE | 2019-07-06 19:40 | NUR ---
PATIENT'S IV IS LEAKING AND NOT FLUSHING, IS THEREFORE NOW D/C'D. OBTAINED ORDER FOR IV BP MEDICATION FROM HOSPITALIST. WILL START NEW IV AND ADMINISTER MEDICATION.
--- NOTE | 2019-07-06 21:45 | NUR ---
BLOOD PRESSURE RE-CHECK PATIENT'S BLOOD PRESSURE PER CAPSULE IS 158/86 W/ HR OF 89; APPEARS TO BE RESPONDING WELL TO MEDICATION. PATIENT NO LONGER APPEARS FLUSHED, AND DENIES HEAD PRESSURE. WILL CONTINUE TO MONITOR, AND WILL RECHECK BP PER UNIT PROTOCOL AND RESPOND PER EMAR. CALL LIGHT IN REACH, DAUGHTER IN ROOM.
[2019-07-07 05:07] LABS: BASOPHILS ABSOLUTE AUTO 0.03 K/mm3 (0.00-0.23); BASOPHILS PERCENT AUTO 0 % (0-2); EOSINOPHILS ABSOLUTE AUTO 0.22 K/mm3 (0.00-0.68); EOSINOPHILS PERCENT AUTO 2 % (0-6); Hemoglobin 12.4 g/dL (11.5-16.0); IMMATURE GRAN ABSOLUTE AUTO 0.03 K/mm3 (0.00-0.10); IMMATURE GRAN PERCENT AUTO 0 % (0-1); LYMPHOCYTES ABSOLUTE AUTO 3.51 K/mm3 (0.84-5.20); LYMPHOCYTES PERCENT AUTO 32 % (21-46); MONOCYTES ABSOLUTE AUTO 1.78 K/mm3 (0.16-1.47); MONOCYTES PERCENT AUTO 16 % (4-13); Mean Corpuscular HGB 32.1 pg (26.0-34.0); Mean Corpuscular Volume 104 fL (80-100); Mean Platelet Volume 9.5 fL (9.1-12.4); NEUTROPHILS ABSOLUTE AUTO 5.34 K/mm3 (1.96-9.15); NEUTROPHILS PERCENT AUTO 49 % (41-73); Platelet Count 397 K/mm3 (150-400); RDW Coefficient Variation 14.6 % (11.7-14.2); RDW Standard Deviation 56.4 fL (35.1-46.3); Red Blood Cell Count 3.86 M/mm3 (3.80-5.20); White Blood Cell Count 10.91 K/mm3 (4.00-11.30)
[2019-07-07 05:50] LABS: Albumin, Blood 2.9 g/dL (3.4-5.0); Anion Gap 6 mmol/L (6-16); Blood Urea Nitrogen 15 mg/dL (8-24); Bun/Creatinine Ratio 21.9 (12.0-20.0); CO2, Blood 31 mmol/L (21-32); Calcium, Blood 9.1 mg/dL (8.5-10.1); Chloride, Blood 103 mmol/L (98-108); Creatinine, Blood 0.69 mg/dL (0.40-1.00); Glomerular Filtration Rate >60 (60-); Glucose, Blood 110 mg/dL (70-99); Potassium, Blood 3.6 mmol/L (3.5-5.5); Sodium, Blood 140 mmol/L (136-145)
--- NOTE | 2019-07-07 07:35 | NUR ---
SHIFT SUMMARY PATIENT TRANSFERRED SAFELY WITH STANDBY ASSIST TO BEDSIDE COMMODE NUMEROUS TIMES THIS SHIFT, AND WAS GENERALLY CONTINENT T/O. ONE EPISODE OF HTN W/ SBP >160 WAS TREATED WITH PRN MEDS PER EMAR (NEW ORDERS RECEIVED) AFTER WHICH SBP REMAINED UNDER 160 FOR REMAINDER OF SHIFT. PATIENT WAS COMPLIANT WITH ALL INTERVENTIONS AND PLEASANTLY CONVERSATIONAL AND MILDLY FORGETFUL W/ EVERY ENCOUNTER. PATIENT DENIED PAIN T/O, MAINTAINED SATURATION ABOVE 90% ON 1L VIA NC EXCEPT ONE EPISODE OF MILD DYSPNEA W/ TRANSFER, DURING WHICH O2 WAS BRIEFLY TITRATED TO 3L TO MAINTAIN SAME %. PASSED CARE AND REPORT TO ONCOMING SHIFT AT 0700, PATIENT ROUSABLE BY VOICE, LYING IN BED, CALL LIGHT IN REACH
--- NOTE | 2019-07-07 09:56 | NUR ---
DR. OBREGON RESTARTED HOME CYMBALTA. PATIENT 97% ON 1L NC AT REST. PT ADVISED SHE DROPPED TO 87 WITH ACTIVITY. SHE DROPPED TO 85% WHILE ASSISTED TO BSC, AND NC PLACED BACK ON. MAY HAVE BEEN HOLDING HER BREATH. SHE SAYS SHE FEELS ANXIOUS. SHORT TERM MEMORY DEFFICIT. ADVISED HER EACH TIME THAT SHE WAS GIVEN HER MED FOR ANXIETY,
--- NOTE | 2019-07-07 16:21 | NUR ---
REPORT GIVEN TO BONIFACIO AMARO. PATIENT BEING MOVED TO ROOM 348
--- NOTE | 2019-07-07 16:33 | NUR ---
PATIENT MOVED IN BY PICTURE HANGER WITH ALL BELONGINGS. DAUGHTER, BETHANY, WAS NOTIFIED
--- NOTE | 2019-07-07 17:49 | NUR ---
PT TRANSFERED TO THE MEDICAL FLOOR FROM THE PCU, A/OX3, APPARENTLY HAS SHORT TERM MEMORY LOSS, THE PT APPEARS TO BE BREATHING EASILY ON RA AT THIS TIME, THE PT WAS MEDICATED FOR HEAD ACHE, THE PT WAS ORIENTED TO THE ROOM LAYOUT AND CALL SYSTEM, CALL LIGHT IN REACH, FAMILY AT THE BEDSIDE, BED ALARM ON, CALL LIGHT IN REACH, WILL CONTINUE TO MONITOR AND ASSESS FOR CHANGES
--- NOTE | 2019-07-07 23:49 | NUR ---
PT HAD LARGE BM THIS SHIFT. PT HAD SOME ABD DISCOMFORT WITH NAUSEA. PT FELT BETTER AFTER BM. PT REPORTED SOME NAUSEA STILL AND MEDICATED PER EMAR.
--- NOTE | 2019-07-08 05:11 | NUR ---
SHIFT SUMMARY PT HAD A REPORTED A-FLUTTER IN 140'S THAT RESOLVED ON ITS OWN QUICKLY. PT HAD SOME NAUSEA AND ABD DISCOMFORT. ZOFRAN WAS ORDERED AND DISCOMFORT RESOLVED WITH LARGE BM. PT IS PLESANT WITH SHORT TERM MEMORY ISSUES. PT HAS SLEPT T/O SHIFT. PT DID NOT REQUIRE O2 DURING THE SHIFT. PT DID NOT HAVE SOB WALKING TO BATHROOM. PT CURRENTLY SLEEPING AND BREATHING EASY. CALL LIGHT IN REACH AND BED ALARM ON.
[2019-07-08 05:39] LABS: BASOPHILS ABSOLUTE AUTO 0.02 K/mm3 (0.00-0.23); BASOPHILS PERCENT AUTO 0 % (0-2); EOSINOPHILS PERCENT AUTO 1 % (0-6); Hematocrit 39.5 % (33.0-51.0); Hemoglobin 12.3 g/dL (11.5-16.0); IMMATURE GRAN ABSOLUTE AUTO 0.03 K/mm3 (0.00-0.10); IMMATURE GRAN PERCENT AUTO 0 % (0-1); LYMPHOCYTES ABSOLUTE AUTO 2.61 K/mm3 (0.84-5.20); LYMPHOCYTES PERCENT AUTO 27 % (21-46); MONOCYTES ABSOLUTE AUTO 1.43 K/mm3 (0.16-1.47); MONOCYTES PERCENT AUTO 15 % (4-13); Mean Corpuscular HGB 32.5 pg (26.0-34.0); Mean Corpuscular HGB Conc 31.1 g/dL (31.5-36.5); Mean Corpuscular Volume 104 fL (80-100); Mean Platelet Volume 9.7 fL (9.1-12.4); NEUTROPHILS ABSOLUTE AUTO 5.32 K/mm3 (1.96-9.15); NEUTROPHILS PERCENT AUTO 56 % (41-73); Platelet Count 358 K/mm3 (150-400); RDW Coefficient Variation 14.6 % (11.7-14.2); RDW Standard Deviation 56.2 fL (35.1-46.3); Red Blood Cell Count 3.79 M/mm3 (3.80-5.20); White Blood Cell Count 9.51 K/mm3 (4.00-11.30)
[2019-07-08 06:13] LABS: Albumin, Blood 2.5 g/dL (3.4-5.0); Anion Gap 4 mmol/L (6-16); Blood Urea Nitrogen 14 mg/dL (8-24); Bun/Creatinine Ratio 19.8 (12.0-20.0); CO2, Blood 33 mmol/L (21-32); Calcium, Blood 8.8 mg/dL (8.5-10.1); Chloride, Blood 103 mmol/L (98-108); Creatinine, Blood 0.71 mg/dL (0.40-1.00); Glomerular Filtration Rate >60 (60-); Glucose, Blood 102 mg/dL (70-99); Phosphorus, Blood 3.9 mg/dL (2.5-4.9); Potassium, Blood 3.7 mmol/L (3.5-5.5); Sodium, Blood 140 mmol/L (136-145)
--- NOTE | 2019-07-08 17:09 | NUR ---
PT IS A/OX3, PLEASANT AND COOPERATIVE, THE PT IS UP WITH MINIMAL ASSIST TO THE BATHROOM, THE PT WAS UP IN THE CHAIR FOR MEALS TODAY, THE PT CONTINUES TO REQUIRE OXYGEN AT 1L/MIN AT THIS TIME TO MAINTAIN O2 SATS GREATER THAN 90%, JUANA TODAY C/O COLLINS, WAS GIVEN TYLENOL AND THE COFFEE DR. RIVERA RECOMMENDED WITH SOME RELIEF AFTER THE COFFEE, PTS FAMILY HAS BEEN IN TO SEE THE PT T/O THE DAY, CALL LIGHT IN REACH WILL CONTINUE TO MONITOR AND ASSESS FOR CHANGES
--- NOTE | 2019-07-09 04:54 | NUR ---
SUMMARY: A/OX3, CALLS APPROPRIATELY AND IS COOPERATIVE W/CARE. SHE'S A SBA W/FWW TO THE BATHROOM BUT BED ALARM IS ON FOR OCCASIONAL FORGETFULNESS. PT REMAINS ON 1L O2 W/SPO2 WNL. HOME O2 EVAL MAY BE REQUIRED TODAY BEFORE POSSIBLE D/C. ORAL ABX RECIEVED. SHE'S DENIED PAIN/COMPLAINTS AND WAS GIVEN SNACKS PER REQUEST. PT REMAINS NSR AT 80-90'S BPM. BP ELEVATED THIS AM, SBP 170'S AND DBP 100'S. HYDRALAZINE PRN RECIEVED FOR BP IMPROVEMENT TO 159/90. NO ACUTE CHANGES. WCTM AND REPORT TO DAY RN.
[2019-07-09] MEDS ORDERED: Amlodipine Bes2.5 MG PO (13:52)
[2019-07-09] MEDS ORDERED: CEFU250T47 PO (13:53)
--- NOTE | 2019-07-09 15:31 | NUR ---
PATIENT DISCHARGE: PATIENT DISCHARGED/ XFR TO HOME HEALTH THIS SHIFT. MEDICATION RECONCILIATION COMPLETED; MED LIST FAXED TO [facility]. DISCHARGE EDUCATION COMPLETED WITH PATIENT AND FAMILY. PATIENT TRANSPORTED TO EXIT BY [facility] STAFF WITH WHEELCHAIR AT 1528. PATIENT DEPARTED [facility] VIA PRIVATE AUTO.
== END 2019-07-09 15:30 | disposition home health service (06) | DRG 193 ==
LOC: ER 10:34 → PCU 14:38 → MEDS 07-07 16:42
PROVIDERS: Emergency Medicine; Internal Medicine Endocrinology, Diabetes & Metabolism; ADMIT Family Medicine
PROC: 5A09457 Assistance with Respiratory Ventilation, 24-96 Consecutive Hours, Continuous Positive Airway Pressure (ICD-10-PCS; principal; 2019-07-04)
DX: J18.9 Pneumonia, unspecified organism (principal); J96.02 Acute respiratory failure with hypercapnia; J96.01 Acute respiratory failure with hypoxia; N17.9 Acute kidney failure, unspecified; F03.90 Unspecified dementia, unspecified severity, without behavioral disturbance, psychotic disturbance, mood disturbance, and anxiety; I48.0 Paroxysmal atrial fibrillation; G25.81 Restless legs syndrome; M06.00 Rheumatoid arthritis without rheumatoid factor, unspecified site; F41.8 Other specified anxiety disorders; Z87.891 Personal history of nicotine dependence; M45.9 Ankylosing spondylitis of unspecified sites in spine; D89.9 Disorder involving the immune mechanism, unspecified
CPT/HCPCS: 36415; 36600; 51701; 70450; 71045; 71046; 73030; 80053; 80069; 82550; 82553; 82803; 82947; 83880; 84484; 85025; 85610; 92523; 92610; 93005; 93010; 94660; 94762; 96361-59; 96365-59; 96366-59; 96367-59; 97110; 97162; 97165; 97530; 97535; 99285-25; J0360; J0456; J0696; J1650; J2405; J7030; J7042; J7050

== ENCOUNTER 2019-08-01 00:10 | Day surgery (SDC) | payer MEDICARE, OTHER ==
[~2019-08-01 00:10] MED LIST changes: +Amlodipine Bes2.5 MG PO; +CEFU250T47 PO
[2019-08-01 14:55] LABS: BASOPHILS ABSOLUTE AUTO 0.02 K/mm3 (0.00-0.23); BASOPHILS PERCENT AUTO 0 % (0-2); EOSINOPHILS ABSOLUTE AUTO 0.23 K/mm3 (0.00-0.68); EOSINOPHILS PERCENT AUTO 3 % (0-6); Hematocrit 38.4 % (33.0-51.0); IMMATURE GRAN ABSOLUTE AUTO 0.02 K/mm3 (0.00-0.10); IMMATURE GRAN PERCENT AUTO 0 % (0-1); LYMPHOCYTES ABSOLUTE AUTO 2.74 K/mm3 (0.84-5.20); LYMPHOCYTES PERCENT AUTO 34 % (21-46); MONOCYTES PERCENT AUTO 14 % (4-13); Mean Corpuscular HGB 31.5 pg (26.0-34.0); Mean Corpuscular HGB Conc 31.3 g/dL (31.5-36.5); Mean Corpuscular Volume 101 fL (80-100); Mean Platelet Volume 9.5 fL (9.1-12.4); NEUTROPHILS ABSOLUTE AUTO 3.89 K/mm3 (1.96-9.15); NEUTROPHILS PERCENT AUTO 48 % (41-73); Platelet Count 360 K/mm3 (150-400); RDW Coefficient Variation 14.5 % (11.7-14.2); RDW Standard Deviation 52.3 fL (35.1-46.3); Red Blood Cell Count 3.81 M/mm3 (3.80-5.20)
== END 2019-08-01 16:40 | disposition home or self-care (01) ==
LOC: ATC 00:10
PROVIDERS: Internal Medicine Rheumatology
DX: M06.08 Rheumatoid arthritis without rheumatoid factor, vertebrae (principal); I10 Essential (primary) hypertension; E66.01 Morbid (severe) obesity due to excess calories; E78.5 Hyperlipidemia, unspecified; Z68.33 Body mass index [BMI] 33.0-33.9, adult; Z79.899 Other long term (current) drug therapy
CPT/HCPCS: 84450; 85025; 85651; 96413; 96415; J7050; Q5103